=== PATIENT | female | born 1940 | race Caucasian/White ===

== ENCOUNTER 2018-06-01 12:25 | Emergency (ER) | payer MEDICARE, OTHER ==
[~2018-06-01] VITALS: Wt 102.9 kg
[2018-06-01] MEDS ORDERED: HCTZ 25MG25 MG PO (12:50)
[2018-06-01] MEDS ORDERED: LEVOTHYROXINE112 MCG PO (12:50)
[2018-06-01] MEDS ORDERED: MULTIVITAMIN1 SGL PO (12:51)
[2018-06-01] MEDS ORDERED: POTASSIUM CHLO20 ME4 PO (12:51)
[2018-06-01] MEDS ORDERED: POTASSIUM CHLO10 ME6 PO (12:52)
[2018-06-01] MEDS ORDERED: SIMVASTATIN40 M1 PO (12:52)
[2018-06-01] MEDS ORDERED: PREDNISONE 5MG5 MG PO (12:52)
[2018-06-01] MEDS ORDERED: VITAMIN B COMPL1 SGL PO (12:52)
[2018-06-01] MEDS ORDERED: DULOXETINE30 MG PO (12:53)
[2018-06-01] MEDS ORDERED: ATENOLOL50 MG PO (12:53)
[2018-06-01 13:14] LABS: HEMOGLOBIN 13.5 g/dL (12.5-16.0); MEAN CELL VOLUME 81 fl (78-100); MEAN CORPUSCULAR HEMOGLOBIN 25 pg (27-31); MEAN CORPUSCULAR HGB CONC 31 g/dL (33-37); MEAN PLATELET VOLUME 9.8 fl (7.4-10.4); PLATELET COUNT 466 K/mm3 (130-400); RED BLOOD COUNT 5.34 M/mm3 (4.10-5.30); RED CELL DISTRIBUTION WIDTH 15.8 % (11.5-14.5)
[2018-06-01 13:27] LABS: WHITE BLOOD COUNT 23.1 K/mm3 (4.8-10.8)
[2018-06-01 13:34] LABS: ALBUMIN 3.9 g/dL (3.5-5.0); CALCIUM 9.2 mg/dL (8.4-10.2); POTASSIUM 4.5 mmol/L (3.6-5.0); TOTAL BILIRUBIN 1.1 mg/dL (0.2-1.3); TOTAL PROTEIN 7.2 g/dL (6.3-8.2)
[2018-06-01 13:45] LABS: BAND 20 % (0-10); LYMPHOCYTE 3 % (20-51); MONOCYTE 2 % (3-10); NEUTROPHILS 75 % (42-75)
[2018-06-01 15:02] LABS: URINE APPEARANCE CLOUDY; URINE COLOR YELLOW
[2018-06-01 15:03] LABS: URINE BILIRUBIN NEGATIVE (NEGATIVE); URINE BLOOD 50 ery/uL (NEGATIVE); URINE GLUCOSE NEGATIVE (NEGATIVE); URINE KETONE NEGATIVE (NEGATIVE); URINE LEUKOCYTE ESTERASE NEGATIVE (NEGATIVE); URINE MUCUS PRESENT (NOT PRESENT); URINE NITRATE NEGATIVE (NEGATIVE); URINE PROTEIN(semi-quant) 2+ mg/dL (NEGATIVE); URINE UROBILINOGEN NORMAL (NORMAL)
[2018-06-01 18:10] VITALS: BP 169/96
== END 2018-06-01 17:27 | disposition hospice, home (50) ==
LOC: ED 12:25
PROVIDERS: Nurse Practitioner Primary Care
DX: E86.0 Dehydration (principal); A41.9 Sepsis, unspecified organism; N39.0 Urinary tract infection, site not specified; I10 Essential (primary) hypertension; E78.5 Hyperlipidemia, unspecified; F03.90 Unspecified dementia, unspecified severity, without behavioral disturbance, psychotic disturbance, mood disturbance, and anxiety; E07.9 Disorder of thyroid, unspecified; Z79.52 Long term (current) use of systemic steroids
CPT/HCPCS: A4216; J0696; J2060; J2270; J2405; J7030